=== PATIENT | male | born 1955 | race Caucasian/White ===

== ENCOUNTER 2017-02-26 13:04 | Inpatient (IN) | payer SELFPAY ==
[~2017-02-26] VITALS: Ht 177.8 cm; Wt 116.0 kg
[2017-02-26] VITALS (11 sets, daily range): BP systolic 101–129; BP diastolic 68–98; PULSE 68–106; RESP 16–23; TEMP 97.8–98.3; O2SAT 97–98
[2017-02-26] MEDS ORDERED: DILTIAZEM INJ 125 MG in SODIUM CHLORIDE 0.9% INJ 100 ML IV PRN ×2 (13:45→17:15)
[2017-02-26] MEDS ORDERED: DILTIAZEM HCL 25 MG/5 ML VIAL IV PUSH ONE (13:45)
[2017-02-26] MEDS ORDERED: SODIUM CHLORIDE 0.9% FLUSH 10 ML FLUSH IVF PRN (13:45)
--- NOTE | 2017-02-26 13:56 | PD ---
HPI Chief Complaint: Respiratory Symptoms Time Seen by Provider: 13:40 Travel History International Travel<30 days: No Contact w/Intl Traveler<30days: No Traveled to known affect area: No History of Present Illness HPI This is a 61-year-old male with no significant past medical history, presents today with shortness of breath with exertion 10 days. Patient also reports shortness of breath when lying flat. Patient also remarks that he's had swelling of his legs over last 2 days. He states this is new. He has no chest pain, chest pressure. She denies any palpitations. There are no other complaints time my examination. The patient reports smoking 5 cigars per year. He denies any alcohol abuse. He denies any thyroid disease. [facility] Social History Tobacco Use: Yes (occasional cigar. Reports 5 per year) Allergies-Medications (Allergen,Severity, Reaction): Coded Allergies: No Known Allergies (Unverified , 02/26/17) Reported Meds & Prescriptions Reported Meds & Active Scripts Active Reported Aspirin Low Dose (Aspirin) 81 Mg Chew 81 Mg CHEW DAILY Review of Systems Except as stated in HPI: all other systems reviewed are Neg HENT: No: Headaches, Lightheadedness Cardiovascular: No: Chest Pain or Discomfort, Palpitations, Irregular Rhythm Respiratory: Positive: Shortness of Breath, No: Cough, Wheezing Gastrointestinal: No: Nausea, Vomiting, Abdominal Pain Genitourinary: No: Dysuria, Decreased Urinary Output Musculoskeletal: Positive: Edema, No: Weakness, Pain Neurologic: No: Weakness, Dizziness, Headache Physical Exam Narrative GENERAL: Well-developed well-nourished male in mild respiratory distress. SKIN: Focused skin assessment warm/dry. HEAD: Atraumatic. Normocephalic. EYES: No scleral icterus. No injection or drainage. ENT: No nasal bleeding or discharge. Mucous membranes pink and moist. NECK: Trachea midline. No JVD. Supple. CARDIOVASCULAR: Irregularly irregular with a rate in the 130s. No obvious murmurs gallops rubs. RESPIRATORY: No accessory muscle use. Clear to auscultation. Breath sounds equal bilaterally. GASTROINTESTINAL: Abdomen soft, non-tender, nondistended. Hepatic and splenic margins not palpable. MUSCULOSKELETAL: No obvious deformities. No clubbing. No cyanosis. Trace edema bilaterally. NEUROLOGICAL: Awake and alert. No obvious cranial nerve deficits. Motor grossly within normal limits. Normal speech. PSYCHIATRIC: Appropriate mood and affect; insight and judgment normal. Data Data Last Documented VS Vital Signs Date Time Temp Pulse Resp B/P (MAP) Pulse Ox O2 Delivery O2 Flow Rate FiO2 02/26/17 17:39 97 23 129/83 (98) 97 Nasal Cannula 2.00 02/26/17 13:06 97.8 Orders Orders Electrocardiogram (02/26/17 13:40) Basic Metabolic Panel (Bmp) (02/26/17 13:40) B-Type Natriuretic Peptide (02/26/17 13:40) Ckmb (Isoenzyme) Profile (02/26/17 13:40) Complete Blood Count With Diff (02/26/17 13:40) Magnesium (Mg) (02/26/17 13:40) Prothrombin Time / Inr (Pt) (02/26/17 13:40) Act Partial Throm Time (Ptt) (02/26/17 13:40) Troponin I (02/26/17 13:40) Chest, Single Ap (02/26/17 13:40) Ecg Monitoring (02/26/17 13:40) Bilateral Bp Monitoring (02/26/17 13:40) Iv Access Insert/Monitor (02/26/17 13:40) Oximetry (02/26/17 13:40) Oxygen Administration (02/26/17 13:40) Sodium Chloride 0.9% Flush (Ns Flush) (02/26/17 13:45) Diltiazem Inj (Cardizem Inj) (02/26/17 13:45) Diltiazem Inj (Cardizem Inj) (02/26/17 13:45) Troponin I (02/26/17 13:58) Ckmb (Isoenzyme) Profile (02/26/17 13:58) Furosemide Inj (Lasix Inj) (02/26/17 15:45) Thyroid Stimulating Hormone (02/26/17 15:47) Comprehensive Metabolic Panel (02/27/17 06:00) Free Thyroxine (T4) (02/27/17 06:00) Hemoglobin (Hgb) A1c (02/27/17 06:00) Magnesium (Mg) (02/27/17 06:00) Phosphorus (Po4) (02/27/17 06:00) Thyroid Stimulating Hormone (02/27/17 06:00) Complete Blood Count With Diff (02/27/17 06:00) Bedside Glucose JULI.CSUGAR (02/26/17 17:01) Blood Glucose Goal (Criteria) (02/26/17 17:01) Hypoglycemia 70 Mg/Dl Or < (02/26/17 17:01) Notify Dr: Other (02/26/17 17:01) Dextrose 50% In Saw (Vial) Inj (D50w (Vi (02/26/17 17:15) Glucagon Inj (Glucagon Inj) (02/26/17 17:15) Case Management Consult (02/26/17 ) Insulin Aspart Supplemtl Scale (Novolog (02/26/17 21:00) Admit To Inpatient (02/26/17 ) Code Status (02/26/17 17:02) Vital Signs (Adult) Q4H (02/26/17 17:02) Activity Bed Rest (02/26/17 17:02) Intake + Output JULI.QSHIFT (02/26/17 17:02) Diet Heart Healthy (02/26/17 Dinner) Sodium Chloride 0.9% Flush (Ns Flush) (02/26/17 17:15) Sodium Chloride 0.9% Flush (Ns Flush) (02/26/17 21:00) Enoxaparin Inj (Lovenox Inj) (02/26/17 18:00) Aspirin (Aspirin) (02/26/17 17:15) Magnesium (Mg) (02/26/17 17:02) Troponin I (02/26/17 17:02) Troponin I (02/26/17 23:02) Troponin I (02/27/17 05:02) Creatine Kinase (Cpk) (02/26/17 17:02) Creatine Kinase (Cpk) (02/26/17 23:02) Creatine Kinase (Cpk) (02/27/17 05:02) Echo 2d Comp With Doppler (02/26/17 ) Resp Oxygen Rodrigo C Titrat 1-4 L (02/26/17 ) Resp Pulse Oximetry (02/26/17 ) Consult Cardiology (02/26/17 ) Scd Bilateral/Knee High JULI.BID (02/26/17 17:02) Chicho Bilateral/Knee High JULI.QSHIFT (02/26/17 17:15) Vital Signs (Adult) Q15MX4,Q4H (02/26/17 17:02) Sales Floor Manager / Telemetry JULI.Q8H (02/26/17 17:02) Cardiac Rhythm JULI.Q8H (02/26/17 17:02) Notify Dr: Other (02/26/17 17:02) Diltiazem Inj (Cardizem Inj) (02/26/17 17:15) Vital Signs (Adult) Q4H (02/26/17 17:02) Sales Floor Manager / Telemetry .CONTINUOUS (02/26/17 17:02) Intake + Output JULI.QSHIFT (02/26/17 17:02) Sodium Chloride 0.9% Flush (Ns Flush) (02/26/17 17:15) Sodium Chloride 0.9% Flush (Ns Flush) (02/26/17 21:00) Acetaminophen (Tylenol) (02/26/17 17:15) Ondansetron Inj (Zofran Inj) (02/26/17 17:15) Metoclopramide Inj (Reglan Inj) (02/26/17 17:15) Resp Oxygen Rodrigo C Titrat 1-4 L (02/26/17 ) Pt Request For Service (02/26/17 17:02) Ot Request For Service (02/26/17 17:02) Case Management Consult (02/26/17 17:02) Acetaminophen (Tylenol) (02/26/17 17:15) Oxycodone-Acetamin 5-325 Mg (Percocet (02/26/17 17:15) Oxycodone-Acetamin 10-325 Mg (Percocet 1 (02/26/17 17:15) Morphine Inj (Morphine Inj) (02/26/17 17:15) Naloxone Inj (Narcan Inj) (02/26/17 17:15) Docusate Sodium-Senna (Laurie-Colace) (02/26/17 21:00) Magnesium Hydroxide Liq (Milk Of Magnesi (02/26/17 17:15) Sennosides (Senokot) (02/26/17 17:15) Bisacodyl Supp (Dulcolax Supp) (02/26/17 17:15) Lactulose Liq (Lactulose Liq) (02/26/17 17:15) Inpatient Certification (02/26/17 ) Famotidine (Pepcid) (02/26/17 21:00) Occult Blood (Hemoccult) Stool (02/26/17 17:08) Morphine Inj (Morphine Inj) (02/26/17 17:15) Admit Order (Ed Use Only) (02/26/17 17:44) (Hub Use Only)Inp Phy Cons/Ref (02/26/17 ) Labs Laboratory Tests Test 02/26/17 13:52 02/26/17 14:08 02/26/17 16:29 White Blood Count 9.0 TH/MM3 Red Blood Count 4.40 MIL/MM3 Hemoglobin 15.5 GM/DL Hematocrit 44.1 % Mean Corpuscular Volume 100.2 FL Mean Corpuscular Hemoglobin 35.3 PG Mean Corpuscular Hemoglobin Concent 35.3 % Red Cell Distribution Width 13.1 % Platelet Count 222 TH/MM3 Mean Platelet Volume 8.0 FL Neutrophils (%) (Auto) 69.5 % Lymphocytes (%) (Auto) 19.5 % Monocytes (%) (Auto) 10.4 % Eosinophils (%) (Auto) 0.1 % Basophils (%) (Auto) 0.5 % Neutrophils # (Auto) 6.3 TH/MM3 Lymphocytes # (Auto) 1.8 TH/MM3 Monocytes # (Auto) 0.9 TH/MM3 Eosinophils # (Auto) 0.0 TH/MM3 Basophils # (Auto) 0.0 TH/MM3 CBC Comment DIFF FINAL Differential Comment Prothrombin Time 13.1 SEC Prothromb Time International Ratio 1.3 RATIO Activated Partial Thromboplast Time 22.2 SEC Blood Urea Nitrogen 23 MG/DL Creatinine 1.16 MG/DL Random Glucose 119 MG/DL Calcium Level 8.4 MG/DL Magnesium Level 2.1 MG/DL Sodium Level 139 MEQ/L Potassium Level 3.8 MEQ/L Chloride Level 107 MEQ/L Carbon Dioxide Level 21.6 MEQ/L Anion Gap 10 MEQ/L Estimat Glomerular Filtration Rate 64 ML/MIN Total Creatine Kinase 80 U/L 76 U/L Troponin I 0.17 NG/ML 0.17 NG/ML B-Type Natriuretic Peptide 1556 PG/ML MDM Medical Decision Making Medical Screen Exam Complete: Yes Emergency Medical Condition: Yes Differential Diagnosis A. fib with RVR versus sinus tachycardia versus metabolic derangement versus ACS Narrative Course 61-year-old male with no past microscopic, presents here with 10 day history of exertional shortness of breath. Patient was noted to be in A. fib with RVR. He was started on diltiazem drip after diltiazem bolus. His heart rate initially was in the 130s 140s. Is currently now in the 80s and 90s. Patient has mild to moderate congestive heart failure on chest x-ray. He's been given Lasix 40 mg I V times one dose. Patient's troponin is also 0.17. He'll be admitted to the hospital placed on a telemetry floor. He is currently having no chest pain. [facility] agreed to admit the patient to his service. The be cardiology consult. Critical Care Narrative Aggregate critical care time was 40 minutes. Time to perform other separately billable procedures was not included in the critical care time. My time did not include minutes spent treating any other patients simultaneously or on activities that did not directly contribute to the patient's treatment. The services I provided to this patient were to treat and/or prevent clinically significant deterioration that could result in: I provided critical care services requiring my management, as noted below: Chart data review, documentation time, medication orders and management, vital sign assessments/reviewing monitor data, ordering and reviewing lab tests, ordering and interpreting/reviewing x-rays and diagnostic studies, care of the patient and discussion of the patient with the admitting physicians. Diagnosis Primary Impression: Atrial fibrillation with rapid ventricular response Additional Impressions: Congestive heart failure Elevated troponin Admitting Information Admitting Physician Requests: Admit Remy Batista MD Feb 26, 2017 13:56
[2017-02-26 14:05] LABS: AUTOMATED NEUTROPHIL # 6.3 TH/MM3 (1.8-7.7); BASOPHIL % 0.5 % (0.0-2.0); EOSINOPHIL % 0.1 % (0.0-4.0); HEMATOCRIT 44.1 % (39.0-51.0); HEMOGLOBIN 15.5 GM/DL (13.0-17.0); LYMPH % 19.5 % (9.0-44.0); LYMPHOCYTE # 1.8 TH/MM3 (1.0-4.8); MEAN CELL VOLUME 100.2 FL (80.0-100.0); MEAN CORPUSCULAR HEMOGLOBIN 35.3 PG (27.0-34.0); MEAN CORPUSCULAR HGB CONC 35.3 % (32.0-36.0); MONO % 10.4 % (0.0-8.0); MONOCYTE # 0.9 TH/MM3 (0-0.9); NEUT % 69.5 % (16.0-70.0); PLATELET COUNT 222 TH/MM3 (150-450); RED CELL DISTRIBUTION WIDTH 13.1 % (11.6-17.2)
[2017-02-26 14:14] LABS: INTERNATIONAL NORMALIZED RATIO 1.3 RATIO; PROTHROMBIN TIME - PATIENT 13.1 SEC (9.8-11.6)
[2017-02-26 14:26] LABS: BICARBONATE 21.6 MEQ/L (21.0-32.0); CALCIUM 8.4 MG/DL (8.5-10.1); CREATININE 1.16 MG/DL (0.60-1.30); MAGNESIUM 2.1 MG/DL (1.5-2.5)
[2017-02-26 14:29] LABS: TROPONIN I 0.17 NG/ML (0.02-0.05)
--- NOTE | 2017-02-26 14:32 | RADRPT ---
EXAM DATE/TIME: 02/26/2017 13:58 [facility] COMPARISON: No previous studies available for comparison. INDICATIONS : Chest pain. MEDICAL HISTORY : A-fib. SURGICAL HISTORY : None. ENCOUNTER: Initial ACUITY: 3 days PAIN SCORE: 4/10 LOCATION: Bilateral chest FINDINGS: Cardiomegaly mild interstitial edema. No focal consolidation. No pneumothorax. No pleural effusion . The portion of the bony skeleton visualized is unremarkable. CONCLUSION: Mild congestive failure. Mild cardiomegaly Casey Guardado MD FACR on February 26, 2017 at 14:29 Board Certified Radiologist. This report was verified electronically.
[2017-02-26 14:46] LABS: TROPONIN I 0.17 NG/ML (0.02-0.05)
[2017-02-26] MEDS ORDERED: FUROSEMIDE 40 MG/4 ML VIAL IV PUSH ONE (15:45)
--- NOTE | 2017-02-26 16:38 | EKG ---
Date Performed: 02/26/2017 Time Performed: 13:46:36 PTAGE: 61 years EKG: ATRIAL FIBRILLATION WITH RAPID VENTRICULAR RESPONSE WITH ABERRANT CONDUCTION OR VENTRICULAR PREMATURE COMPLEXES MARKED LEFT AXIS DEVIATION INCOMPLETE RIGHT BUNDLE BRANCH BLOCK NONSPECIFIC T-WA VE ABNORMALITY ABNORMAL ECG NO PREVIOUS TRACING DOCTOR: Titus Ordonez Interpretating Date/Time 02/26/2017 16:37:00
[2017-02-26] MEDS ORDERED: SODIUM CHLORIDE 0.9% FLUSH 10 ML FLUSH IV FLUSH PRN ×2 (17:15)
[2017-02-26] MEDS ORDERED: ONDANSETRON HCL 4 MG/2 ML VIAL IVP PRN (17:15)
[2017-02-26] MEDS ORDERED: SENNOSIDES 8.6 MG TAB PO PRN (17:15)
[2017-02-26] MEDS ORDERED: LACTULOSE SYRUP 20 GM/30 ML CUP PO PRN (17:15)
[2017-02-26] MEDS ORDERED: oxyCODONE/ACETAMINOPHEN 5 MG/325 MG TAB PO PRN (17:15)
[2017-02-26] MEDS ORDERED: oxyCODONE/ACETAMINOPHEN 10 MG/325 MG TAB PO PRN (17:15)
[2017-02-26] MEDS ORDERED: ACETAMINOPHEN 325 MG TAB PO PRN ×2 (17:15)
[2017-02-26] MEDS ORDERED: BISACODYL 10 MG SUPP RECTAL PRN (17:15)
[2017-02-26] MEDS ORDERED: MAGNESIUM HYDROXIDE SUSP 30 ML CUP PO PRN (17:15)
[2017-02-26] MEDS ORDERED: DEXTROSE 50% IN WATER 50 ML VIAL(D50) IV PUSH PRN (17:15)
[2017-02-26] MEDS ORDERED: GLUCAGON 1 MG/ML VIAL OTHER PRN (17:15)
[2017-02-26] MEDS ORDERED: METOCLOPRAMIDE HCL 10 MG/2 ML VIAL IV PUSH PRN (17:15)
[2017-02-26] MEDS ORDERED: MORPHINE SULFATE 4 MG/ML INJ IV PUSH PRN (17:15)
[2017-02-26] MEDS ORDERED: MORPHINE SULFATE 2 MG/ML INJ IV PUSH PRN (17:15)
[2017-02-26] MEDS ORDERED: NALOXONE HCL 0.4 MG/ML AMP IV PUSH PRN (17:15)
--- NOTE | 2017-02-26 17:19 | HHI.HP ---
HPI Service [facility] Hospitalists Primary Care Physician No Primary Care Physician Admission Diagnosis Diagnoses: (1) Atrial fibrillation Diagnosis: Principal (2) Troponin level elevated Diagnosis: Principal (3) Dyspnea Diagnosis: Principal (4) Shortness of breath Diagnosis: Principal Chief Complaint: Respiratory symptoms Travel History International Travel<30 Days: No Contact w/Intl Traveler <30 Da: No Traveled to Known Affected Are: No History of Present Illness Patient is a 61-year-old male with no significant past medical history presented to [facility] today with shortness of breath with ongoing exertion for the past 10 days. Patient also reports shortness of breath when lying flat. Patient also remarks that he's had swelling of his legs over the last 2 or so days. He states this is new. A denies any chest pain or chest pressure. Denies any palpitations. Smokes 5 cigars per year denies any alcohol abuse denies any thyroid issues Was found to be in A. fib with RVR and positive troponins and therefore will be admitted on a Cardizem drip to the cardiac floor Review of Systems Constitutional: COMPLAINS OF: Fatigue, Weight gain, DENIES: Diaphoretic episodes, Fever, Weight loss, Chills, Dizziness, Change in appetite, Night Sweats Endocrine: DENIES: Heat/cold intolerance, Polydipsia, Polyuria, Polyphagia Eyes: DENIES: Blurred vision, Diplopia, Eye inflammation, Eye pain, Photosensitivity Ears, nose, mouth, throat: DENIES: Tinnitus, Hearing loss, Vertigo, Nasal discharge, Oral lesions, Throat pain Respiratory: DENIES: Apneas, Cough, Snoring, Wheezing, Hemoptysis, Sputum production Cardiovascular: COMPLAINS OF: Dyspnea on Exertion, PND, Lower Extremity Edema, Orthopnea, DENIES: Chest pain, Palpitations, Syncope Gastrointestinal: DENIES: Abdominal pain, Black stools, Bloody stools, Constipation, Diarrhea, Nausea Genitourinary: DENIES: Sexual dysfunction, Urinary frequency Musculoskeletal: DENIES: Joint pain, Muscle aches, Stiffness, Joint Swelling Integumentary: DENIES: Abnormal pigmentation, Nail changes, Pruritus, Rash Hematologic/lymphatic: DENIES: Bruising, Lymphadenopathy Immunologic/allergic: DENIES: Eczema, Urticaria Neurologic: DENIES: Abnormal gait, Headache, Localized weakness Psychiatric: DENIES: Anxiety, Confusion, Mood changes, Depression Except as stated in HPI: all other systems reviewed are Neg Past Family Social History Past Medical History Denies Past Surgical History Denies any surgery Reported Medications None Allergies: Coded Allergies: No Known Allergies (Unverified , 02/26/17) Active Ordered Medications Current Medications Sodium Chloride (NS Flush) 2 ml UNSCH PRN IVF FLUSH AFTER USING IV ACCESS; Start 02/26/17 at 13:45 Diltiazem HCl 125 mg/Sodium Chloride 125 ml @ 5 mls/hr TITRATE PRN IV tachycardia Last administered on 02/26/17 14:52; Start 02/26/17 at 13:45 Diltiazem HCl (Cardizem Inj) 25 mg BOLUS ONCE IV PUSH Last administered on 14:14; Start 02/26/17 at 13:45; Stop 02/26/17 at 13:46; Status DC Furosemide (Lasix Inj) 40 mg ONCE ONCE IV PUSH Last administered on 16:38; Start 02/26/17 at 15:45; Stop 02/26/17 at 15:46; Status DC Dextrose (D50w (Vial) Inj) 50 ml UNSCH PRN IV PUSH HYPOGLYCEMIA-SEE COMMENTS; Start 02/26/17 at 17:15 Glucagon (Glucagon Inj) 1 mg UNSCH PRN OTHER HYPOGLYCEMIA-SEE COMMENTS; Start 02/26/17 at 17:15 Insulin Aspart (NovoLOG SUPPLEMENTAL SCALE) 1 ACHS SLIDING SCALE SQ ; Start at 21:00 Sodium Chloride (NS Flush) 2 ml UNSCH PRN IV FLUSH FLUSH AFTER USING IV ACCESS ; Start 02/26/17 at 17:15; Status UNV Sodium Chloride (NS Flush) 2 ml BID IV FLUSH ; Start 02/26/17 at 21:00; Status UNV Enoxaparin Sodium (Lovenox Inj) 100 mg Q12H SQ ; Start 02/26/17 at 17:15; Status UNV Aspirin (Aspirin) 325 mg DAILY PO ; Start 02/26/17 at 17:15; Status UNV Diltiazem HCl 125 mg/Sodium Chloride 125 ml @ 5 mls/hr TITRATE PRN IV Tachycardia; Start 02/26/17 at 17:15; Status UNV Sodium Chloride (NS Flush) 2 ml UNSCH PRN IV FLUSH FLUSH AFTER USING IV ACCESS ; Start 02/26/17 at 17:15; Status UNV Sodium Chloride (NS Flush) 2 ml BID IV FLUSH ; Start 02/26/17 at 21:00; Status UNV Acetaminophen (Tylenol) 650 mg Q4H PRN PO TEMP > 100.4; Start 02/26/17 at 17: 15; Status UNV Ondansetron HCl (Zofran Inj) 4 mg Q6H PRN IVP NAUSEA OR VOMITING; Start at 17:15; Status UNV Metoclopramide HCl (Reglan Inj) 5 mg Q6H PRN IV PUSH NAUSEA OR VOMITING; Start 02/26/17 at 17:15; Status UNV Acetaminophen (Tylenol) 650 mg Q6H PRN PO PAIN SCALE 1 TO 2; Start 02/26/17 at 17:15; Status UNV Oxycodone/ Acetaminophen (Percocet 5-325 Mg) 1 tab Q6H PRN PO PAIN SCALE 3 TO 5; Start 02/26/17 at 17:15; Status UNV Oxycodone/ Acetaminophen (Percocet 10-325 Mg) 1 tab Q6H PRN PO PAIN SCALE 6 TO 10; Start 02/26/17 at 17:15; Status UNV Morphine Sulfate (Morphine Inj) 2 mg Q3H PRN IV PUSH Pain 3-5; if unable to take PO; Start 02/26/17 at 17:15; Status UNV Morphine Sulfate (Morphine Inj) 4 mg Q3H PRN IV PUSH Pain 6-10;if unable to take PO; Start 02/26/17 at 17:15; Status UNV Naloxone HCl (Narcan Inj) 0.4 mg UNSCH PRN IV PUSH SEE LABEL COMMENTS; Start 02/26/17 at 17:15; Status UNV Senna/Docusate Sodium (Laurie-Colace) 1 tab BID PO ; Start 02/26/17 at 21:00; Status UNV Magnesium Hydroxide (Milk Of Magnesia Liq) 30 ml Q12H PRN PO Mild constipation ; Start 02/26/17 at 17:15; Status UNV Sennosides (Senokot) 17.2 mg Q12H PRN PO Moderate constipation; Start at 17:15; Status UNV Bisacodyl (Dulcolax Supp) 10 mg DAILY PRN RECTAL SEVERE CONSITIPATION; Start 02/26/17 at 17:15; Status UNV Lactulose (Lactulose Liq) 30 ml DAILY PRN PO SEVERE CONSITIPATION; Start 02/26 at 17:15; Status UNV Famotidine (Pepcid) 20 mg BID PO ; Start 02/26/17 at 21:00; Status UNV Family History Father from lung cancer at 54 Mother at 79 with dementia Social History Rare cigar maybe 5 times a year Denies any alcohol abuse. Denies any illicits Physical Exam Vital Signs Vital Signs Date Time Temp Pulse Resp B/P (MAP) Pulse Ox O2 Delivery O2 Flow Rate FiO2 02/26/17 16:40 101 23 112/92 (99) 97 Nasal Cannula 2.00 02/26/17 14:52 103 151/86 02/26/17 14:20 93 Nasal Cannula 2.00 02/26/17 14:17 106 21 112/69 (83) 97 Room Air 02/26/17 13:18 158 99 Room Air 02/26/17 13:06 97.8 68 16 123/98 (106) 97 Physical Exam GENERAL: This is a well-nourished, well-developed patient, in no apparent distress. SKIN: No rashes, ecchymoses or lesions. Cool and dry. HEAD: Atraumatic. Normocephalic. No temporal or scalp tenderness. EYES: Pupils equal round and reactive. Extraocular motions intact. No scleral icterus. No injection or drainage. ENT: Nose without bleeding, purulent drainage or septal hematoma. Throat without erythema, tonsillar hypertrophy or exudate. Uvula midline. Airway patent. NECK: Trachea midline. No JVD or lymphadenopathy. Supple, nontender, no meningeal signs. CARDIOVASCULAR: IRRegular rate and rhythm without murmurs, gallops, or rubs. S1 and S2 no S3 or S4 no heave or thrill or rub or gallop RESPIRATORY: Clear to auscultation. Breath sounds equal bilaterally. No wheezes , rales, or rhonchi. GASTROINTESTINAL: Abdomen soft, non-tender, nondistended. No hepato-splenomegaly , or palpable masses. No guarding. MUSCULOSKELETAL: Extremities without clubbing, cyanosis, +1 to +2 lower extremity edema no joint tenderness, effusion, or edema noted. No calf tenderness. Negative Homans sign bilaterally. NEUROLOGICAL: Awake and alert. Cranial nerves II through XII intact. Motor and sensory grossly within normal limits. Five out of 5 muscle strength in all muscle groups. Normal speech. Insight and judgment is good Mood and behaviors appropriate Laboratory Laboratory Tests Test 02/26/17 13:52 02/26/17 14:08 White Blood Count 9.0 Red Blood Count 4.40 Hemoglobin 15.5 Hematocrit 44.1 Mean Corpuscular Volume 100.2 Mean Corpuscular Hemoglobin 35.3 Mean Corpuscular Hemoglobin Concent 35.3 Red Cell Distribution Width 13.1 Platelet Count 222 Mean Platelet Volume 8.0 Neutrophils (%) (Auto) 69.5 Lymphocytes (%) (Auto) 19.5 Monocytes (%) (Auto) 10.4 Eosinophils (%) (Auto) 0.1 Basophils (%) (Auto) 0.5 Neutrophils # (Auto) 6.3 Lymphocytes # (Auto) 1.8 Monocytes # (Auto) 0.9 Eosinophils # (Auto) 0.0 Basophils # (Auto) 0.0 CBC Comment DIFF FINAL Differential Comment Prothrombin Time 13.1 Prothromb Time International Ratio 1.3 Activated Partial Thromboplast Time 22.2 Blood Urea Nitrogen 23 Creatinine 1.16 Random Glucose 119 Calcium Level 8.4 Magnesium Level 2.1 Sodium Level 139 Potassium Level 3.8 Chloride Level 107 Carbon Dioxide Level 21.6 Anion Gap 10 Estimat Glomerular Filtration Rate 64 Total Creatine Kinase 80 76 Troponin I 0.17 0.17 B-Type Natriuretic Peptide 1556 Result Diagram: 02/26/17 1352 02/26/17 1352 Imaging Last Impressions Chest X-Ray 02/26/17 1340 Signed Impressions: Service Date/Time: Sunday, February 26, 2017 13:58 - CONCLUSION: Mild congestive failure. Mild cardiomegaly Casey Guardado MD FACR Caprini VTE Risk Assessment Caprini VTE Risk Assessment: Mod/High Risk (score >= 2) Caprini Risk Assessment Model Point Value = 1 Point Value = 2 Point Value = 3 Point Value = 5 Age 41-60 Minor surgery BMI > 25 kg/m2 Swollen legs Varicose veins or History of unexplained or recurrent spontaneous Oral contraceptives or hormone replacement Sepsis (< 1 month) Serious lung disease, including pneumonia (< 1 month) Abnormal pulmonary function Acute myocardial infarction Congestive heart failure (< 1 month) History of inflammatory bowel disease Medical patient at bed rest Age 61-74 Arthroscopic surgery Major open surgery (> 45 min) Laparoscopic surgery (> 45 min) Malignancy Confined to bed (> 72 hours) Immobilizing plaster cast Central venous access Age >= 75 History of VTE Family history of VTE Factor V Leiden Prothrombin [id number] Lupus anticoagulant Anticardiolipin antibodies Elevated serum homocysteine Heparin-induced thrombocytopenia Other congenital or acquired thrombophilia Stroke (< 1 month) Elective arthroplasty Hip, pelvis, or leg fracture Acute spinal cord injury (< 1 month) Prophylaxis Regimen Total Risk Factor Score Risk Level Prophylaxis Regimen 0-1 Low Early ambulation 2 Moderate Order ONE of the following: *Sequential Compression Device (SCD) *Heparin 5000 units SQ BID 3-4 Higher Order ONE of the following medications: *Heparin 5000 units SQ TID *Enoxaparin/Lovenox 40 mg SQ daily (WT < 150 kg, CrCl > 30 mL/min) *Enoxaparin/Lovenox 30 mg SQ daily (WT < 150 kg, CrCl > 10-29 mL/min) *Enoxaparin/Lovenox 30 mg SQ BID (WT < 150 kg, CrCl > 30 mL/min) AND/OR *Sequential Compression Device (SCD) 5 or more Highest Order ONE of the following medications: *Heparin 5000 units SQ TID (Preferred with Epidurals) *Enoxaparin/Lovenox 40 mg SQ daily (WT < 150 kg, CrCl > 30 mL/min) *Enoxaparin/Lovenox 30 mg SQ daily (WT < 150 kg, CrCl > 10-29 mL/min) *Enoxaparin/Lovenox 30 mg SQ BID (WT < 150 kg, CrCl > 30 mL/min) AND *Sequential Compression Device (SCD) Assessment and Plan Assessment and Plan Atrial fibrillation with RVR with positive troponins and some edema Continues on Cardizem drip Consult cardiology Continue on anticoagulation with Lovenox Continue GI prophylaxis Stool for occult blood Echocardiogram Continue on aspirin and Pepcid Non-ST elevation MD trend troponins echo Positive troponins we'll trend these We'll check thyroid panel. And treat as appropriate We'll check fasting lipids will need to be on a statin Continue on GI and DVT prophylaxis Stool for occult blood Code Status Full code Discussed Condition With Discussed with patient and and ER physician and RN Physician Certification 2 Midnight Certification Type: Admission for Inpatient Services Order for Inpatient Services The services are ordered in accordance with Medicare regulations or non- Medicare payer requirements, as applicable. In the case of services not specified as inpatient-only, they are appropriately provided as inpatient services in accordance with the 2-midnight benchmark. Estimated LOS (days): 2 2 days is the estimated time the patient will need to remain in the hospital, assuming treatment plan goals are met and no additional complications. Post-Hospital Plan: Not yet determined Casey Souza DO Feb 26, 2017 17:19
[2017-02-26] MEDS ORDERED: ASPI81CH6 CHEW (18:13)
[2017-02-26] MEDS: ASPIRIN 325 MG TAB PO SCH (19:54)
[2017-02-26] MEDS: ENOXAPARIN SODIUM 100 MG/ML SYRINGE SQ SCH (19:54)
[2017-02-26] MEDS ORDERED: SODIUM CHLORIDE 0.9% FLUSH 10 ML FLUSH IV FLUSH SCH (21:00)
[2017-02-26] MEDS: DOCUSATE SODIUM 50 MG/SENNA 8.6 MG TAB PO SCH (21:00)
[2017-02-26] MEDS: INSULIN ASPART SUPPLEMENTAL SCALE SQ SCH (21:00)
[2017-02-26] MEDS: FAMOTIDINE 20 MG TAB PO SCH (21:00)
[2017-02-26] MEDS: SODIUM CHLORIDE 0.9% FLUSH 10 ML FLUSH IV FLUSH SCH (22:08)
[2017-02-26 23:35] LABS: TROPONIN I 0.15 NG/ML (0.02-0.05)
[2017-02-27] VITALS (19 sets, daily range): BP systolic 96–123; BP diastolic 57–86; PULSE 69–113; RESP 16–20; TEMP 97.3–99.7; O2SAT 95–97
[2017-02-27 05:11] LABS: AUTOMATED NEUTROPHIL # 4.3 TH/MM3 (1.8-7.7); BASOPHIL % 0.4 % (0.0-2.0); EOSINOPHIL # 0.1 TH/MM3 (0-0.4); EOSINOPHIL % 0.7 % (0.0-4.0); HEMATOCRIT 40.1 % (39.0-51.0); HEMOGLOBIN 13.9 GM/DL (13.0-17.0); LYMPH % 29.7 % (9.0-44.0); LYMPHOCYTE # 2.1 TH/MM3 (1.0-4.8); MEAN CELL VOLUME 100.2 FL (80.0-100.0); MEAN CORPUSCULAR HEMOGLOBIN 34.7 PG (27.0-34.0); MEAN CORPUSCULAR HGB CONC 34.7 % (32.0-36.0); MEAN PLATELET VOLUME 7.7 FL (7.0-11.0); MONO % 10.2 % (0.0-8.0); MONOCYTE # 0.7 TH/MM3 (0-0.9); PLATELET COUNT 171 TH/MM3 (150-450); WHITE BLOOD COUNT 7.2 TH/MM3 (4.0-11.0)
[2017-02-27] MEDS: ENOXAPARIN SODIUM 100 MG/ML SYRINGE SQ SCH (05:18)
[2017-02-27 05:31] LABS: ALBUMIN 3.1 GM/DL (3.4-5.0); ALT (GPT) 80 U/L (12-78); AST (GOT) 41 U/L (15-37); BICARBONATE 23.9 MEQ/L (21.0-32.0); BLOOD UREA NITROGEN 22 MG/DL (7-18); CALCIUM 7.9 MG/DL (8.5-10.1); CHLORIDE 105 MEQ/L (98-107); CREATININE 0.99 MG/DL (0.60-1.30); GLOMERULAR FILTRATION RATE 77 ML/MIN (>89); GLUCOSE,RANDOM 110 MG/DL (74-106); MAGNESIUM 1.8 MG/DL (1.5-2.5); PHOSPHORUS 4.4 MG/DL (2.5-4.9); SODIUM (NA) 138 MEQ/L (136-145)
[2017-02-27 05:40] LABS: ALKALINE PHOSPHATASE 41 U/L (45-117); FREE T4 1.04 NG/DL (0.76-1.46); TOTAL BILIRUBIN ADULT 0.7 MG/DL (0.2-1.0); TOTAL PROTEIN 5.5 GM/DL (6.4-8.2); TROPONIN I 0.16 NG/ML (0.02-0.05)
[2017-02-27] MEDS: INSULIN ASPART SUPPLEMENTAL SCALE SQ SCH ×4 (08:00→21:00)
[2017-02-27] MEDS: FAMOTIDINE 20 MG TAB PO SCH ×2 (08:10→21:00)
[2017-02-27] MEDS: DOCUSATE SODIUM 50 MG/SENNA 8.6 MG TAB PO SCH ×2 (08:10→21:02)
[2017-02-27] MEDS: ASPIRIN 325 MG TAB PO SCH (08:15)
[2017-02-27] MEDS: SODIUM CHLORIDE 0.9% FLUSH 10 ML FLUSH IV FLUSH SCH ×2 (08:15→21:01)
[2017-02-27] MEDS ORDERED: POTASSIUM CHLORIDE 20 MEQ CONTROLLED RELEASE TAB PO ONE (09:00)
[2017-02-27 09:18] LABS: CHOLESTEROL/ HDL RATIO 3.82 RATIO; HDL CHOLESTEROL 33.5 MG/DL (40.0-60.0)
--- NOTE | 2017-02-27 09:27 | HHI.PR ---
Subjective Remarks Patient is a 61-year-old male with no significant past medical history presented to [facility] today with shortness of breath with ongoing exertion for the past 10 days. Patient also reports shortness of breath when lying flat. Patient also remarks that he's had swelling of his legs over the last 2 or so days. He states this is new. A denies any chest pain or chest pressure. Denies any palpitations. Smokes 5 cigars per year denies any alcohol abuse denies any thyroid issues Was found to be in A. fib with RVR and positive troponins and therefore will be admitted on a Cardizem drip to the cardiac floor 02-27 still on cardizem drip dw RN AND PATIENT TROPONINS NOT TRENDING UP MUCH AWAIT CARDIOLOGY EVAL Objective Vitals Vital Signs Date Time Temp Pulse Resp B/P (MAP) Pulse Ox O2 Delivery O2 Flow Rate FiO2 02/27/17 08:17 100 114/96 02/27/17 06:00 84 02/27/17 05:00 81 02/27/17 04:00 75 02/27/17 04:00 Room Air 02/27/17 04:00 98.8 75 18 118/80 (93) 95 02/27/17 03:00 76 02/27/17 02:00 74 02/27/17 01:00 86 02/27/17 00:00 99.7 84 20 118/64 (82) 96 02/27/17 00:00 Room Air 02/27/17 00:00 84 02/26/17 23:00 101 02/26/17 22:00 87 02/26/17 21:09 97 Nasal Cannula 2.00 02/26/17 21:00 98 02/26/17 20:00 87 02/26/17 20:00 98.3 87 20 109/83 (92) 97 02/26/17 20:00 98 Nasal Cannula 2.00 02/26/17 19:56 84 16 125/94 (104) 98 Room Air 02/26/17 18:56 94 21 101/68 (79) 97 Nasal Cannula 02/26/17 17:39 97 23 129/83 (98) 97 Nasal Cannula 2.00 02/26/17 16:40 101 23 112/92 (99) 97 Nasal Cannula 2.00 02/26/17 14:52 103 151/86 02/26/17 14:20 93 Nasal Cannula 2.00 02/26/17 14:17 106 21 112/69 (83) 97 Room Air 02/26/17 13:18 158 99 Room Air 02/26/17 13:06 97.8 68 16 123/98 (106) 97 I/O 02/26/17 02/26/17 02/26/17 02/27/17 02/27/17 02/27/17 07:00 15:00 23:00 07:00 15:00 23:00 Intake Total 530 ml Output Total 1200 ml 800 ml Balance -1200 ml -270 ml Intake Oral 480 ml IV Total 50 ml Output Urine Total 1200 ml 800 ml # Bowel Movements 0 Result Diagram: 02/27/17 0446 02/27/17 0446 Other Results Laboratory Tests Test 02/26/17 13:52 02/26/17 14:08 02/26/17 16:29 02/26/17 22:48 White Blood Count 9.0 TH/MM3 Red Blood Count 4.40 MIL/MM3 Hemoglobin 15.5 GM/DL Hematocrit 44.1 % Mean Corpuscular Volume 100.2 FL Mean Corpuscular Hemoglobin 35.3 PG Mean Corpuscular Hemoglobin Concent 35.3 % Red Cell Distribution Width 13.1 % Platelet Count 222 TH/MM3 Mean Platelet Volume 8.0 FL Neutrophils (%) (Auto) 69.5 % Lymphocytes (%) (Auto) 19.5 % Monocytes (%) (Auto) 10.4 % Eosinophils (%) (Auto) 0.1 % Basophils (%) (Auto) 0.5 % Neutrophils # (Auto) 6.3 TH/MM3 Lymphocytes # (Auto) 1.8 TH/MM3 Monocytes # (Auto) 0.9 TH/MM3 Eosinophils # (Auto) 0.0 TH/MM3 Basophils # (Auto) 0.0 TH/MM3 CBC Comment DIFF FINAL Differential Comment Prothrombin Time 13.1 SEC Prothromb Time International Ratio 1.3 RATIO Activated Partial Thromboplast Time 22.2 SEC Blood Urea Nitrogen 23 MG/DL Creatinine 1.16 MG/DL Random Glucose 119 MG/DL Calcium Level 8.4 MG/DL Magnesium Level 2.1 MG/DL Sodium Level 139 MEQ/L Potassium Level 3.8 MEQ/L Chloride Level 107 MEQ/L Carbon Dioxide Level 21.6 MEQ/L Anion Gap 10 MEQ/L Estimat Glomerular Filtration Rate 64 ML/MIN Total Creatine Kinase 80 U/L 76 U/L 53 U/L Troponin I 0.17 NG/ML 0.17 NG/ML 0.15 NG/ML B-Type Natriuretic Peptide 1556 PG/ML Thyroid Stimulating Hormone 3rd Gen 3.140 uIU/ML Test 02/27/17 04:46 White Blood Count 7.2 TH/MM3 Red Blood Count 4.00 MIL/MM3 Hemoglobin 13.9 GM/DL Hematocrit 40.1 % Mean Corpuscular Volume 100.2 FL Mean Corpuscular Hemoglobin 34.7 PG Mean Corpuscular Hemoglobin Concent 34.7 % Red Cell Distribution Width 13.0 % Platelet Count 171 TH/MM3 Mean Platelet Volume 7.7 FL Neutrophils (%) (Auto) 59.0 % Lymphocytes (%) (Auto) 29.7 % Monocytes (%) (Auto) 10.2 % Eosinophils (%) (Auto) 0.7 % Basophils (%) (Auto) 0.4 % Neutrophils # (Auto) 4.3 TH/MM3 Lymphocytes # (Auto) 2.1 TH/MM3 Monocytes # (Auto) 0.7 TH/MM3 Eosinophils # (Auto) 0.1 TH/MM3 Basophils # (Auto) 0.0 TH/MM3 CBC Comment DIFF FINAL Differential Comment Blood Urea Nitrogen 22 MG/DL Creatinine 0.99 MG/DL Random Glucose 110 MG/DL Total Protein 5.5 GM/DL Albumin 3.1 GM/DL Calcium Level 7.9 MG/DL Phosphorus Level 4.4 MG/DL Magnesium Level 1.8 MG/DL Alkaline Phosphatase 41 U/L Aspartate Amino Transf (AST/SGOT) 41 U/L Alanine Aminotransferase (ALT/SGPT) 80 U/L Total Bilirubin 0.7 MG/DL Sodium Level 138 MEQ/L Potassium Level 3.4 MEQ/L Chloride Level 105 MEQ/L Carbon Dioxide Level 23.9 MEQ/L Anion Gap 9 MEQ/L Estimat Glomerular Filtration Rate 77 ML/MIN Total Creatine Kinase 46 U/L Troponin I 0.16 NG/ML Triglycerides Level 79 MG/DL Cholesterol Level 128 MG/DL LDL Cholesterol 79 MG/DL HDL Cholesterol 33.5 MG/DL Cholesterol/HDL Ratio 3.82 RATIO Free Thyroxine 1.04 NG/DL Thyroid Stimulating Hormone 3rd Gen 2.260 uIU/ML Imaging Last Impressions Chest X-Ray 02/26/17 1340 Signed Impressions: Service Date/Time: Sunday, February 26, 2017 13:58 - CONCLUSION: Mild congestive failure. Mild cardiomegaly Casey Guardado MD FACR Objective Remarks GENERAL: Awake alert oriented talkative and cooperative denies any chest pain SKIN: Warm and dry. HEAD: Atraumatic. Normocephalic. EYES: Pupils equal and round. No scleral icterus. No injection or drainage. Extraocular muscles intact ENT: No nasal bleeding or discharge. Mucous membranes pink and moist. Tongue is midline NECK: Trachea midline. No JVD. Supple CARDIOVASCULAR: IRRegular rate and rhythm. S1 and S2 no S3 or S4 RESPIRATORY: No accessory muscle use. Clear to auscultation. Breath sounds equal bilaterally. GASTROINTESTINAL: Abdomen soft, non-tender, nondistended. Hepatic and splenic margins not palpable. MUSCULOSKELETAL: Extremities without clubbing, cyanosis No obvious deformities. Trace edema may be in bilateral lower extremities NEUROLOGICAL: Awake and alert. No obvious cranial nerve deficits. Motor grossly within normal limits. Five out of 5 muscle strength in the arms and legs. Normal speech. PSYCHIATRIC: Appropriate mood and affect; insight and judgment normal. Medications and IVs Current Medications Sodium Chloride (NS Flush) 2 ml UNSCH PRN IVF FLUSH AFTER USING IV ACCESS; Start 02/26/17 at 13:45; Stop 02/27/17 at 08:46; Status DC Diltiazem HCl 125 mg/Sodium Chloride 125 ml @ 5 mls/hr TITRATE PRN IV tachycardia Last administered on 02/26/17 14:52; Start 02/26/17 at 13:45; Stop 02/26/17 at 17:33; Status DC Diltiazem HCl (Cardizem Inj) 25 mg BOLUS ONCE IV PUSH Last administered on 14:14; Start 02/26/17 at 13:45; Stop 02/26/17 at 13:46; Status DC Furosemide (Lasix Inj) 40 mg ONCE ONCE IV PUSH Last administered on 16:38; Start 02/26/17 at 15:45; Stop 02/26/17 at 15:46; Status DC Dextrose (D50w (Vial) Inj) 50 ml UNSCH PRN IV PUSH HYPOGLYCEMIA-SEE COMMENTS; Start 02/26/17 at 17:15 Glucagon (Glucagon Inj) 1 mg UNSCH PRN OTHER HYPOGLYCEMIA-SEE COMMENTS; Start 02/26/17 at 17:15 Insulin Aspart (NovoLOG SUPPLEMENTAL SCALE) 1 ACHS SLIDING SCALE SQ ; Start at 21:00 Sodium Chloride (NS Flush) 2 ml UNSCH PRN IV FLUSH FLUSH AFTER USING IV ACCESS ; Start 02/26/17 at 17:15; Stop 02/26/17 at 17:16; Status DC Sodium Chloride (NS Flush) 2 ml BID IV FLUSH ; Start 02/26/17 at 21:00; Stop 02/26/17 at 21:00; Status DC Enoxaparin Sodium (Lovenox Inj) 100 mg Q12H SQ Last administered on 02/27/17 05:18; Start 02/26/17 at 18:00 Aspirin (Aspirin) 325 mg DAILY PO Last administered on 02/27/17 08:15; Start 02/26/17 at 17:15 Diltiazem HCl 125 mg/Sodium Chloride 125 ml @ 5 mls/hr TITRATE PRN IV Tachycardia Last administered on 02/27/17 08:17; Start 02/26/17 at 17:15 Sodium Chloride (NS Flush) 2 ml UNSCH PRN IV FLUSH FLUSH AFTER USING IV ACCESS ; Start 02/26/17 at 17:15 Sodium Chloride (NS Flush) 2 ml BID IV FLUSH Last administered on 02/27/17 08 :15; Start 02/26/17 at 21:00 Acetaminophen (Tylenol) 650 mg Q4H PRN PO TEMP > 100.4; Start 02/26/17 at 17: 15 Ondansetron HCl (Zofran Inj) 4 mg Q6H PRN IVP NAUSEA OR VOMITING; Start at 17:15 Metoclopramide HCl (Reglan Inj) 5 mg Q6H PRN IV PUSH NAUSEA OR VOMITING; Start 02/26/17 at 17:15 Acetaminophen (Tylenol) 650 mg Q6H PRN PO PAIN SCALE 1 TO 2; Start 02/26/17 at 17:15 Oxycodone/ Acetaminophen (Percocet 5-325 Mg) 1 tab Q6H PRN PO PAIN SCALE 3 TO 5; Start 02/26/17 at 17:15 Oxycodone/ Acetaminophen (Percocet 10-325 Mg) 1 tab Q6H PRN PO PAIN SCALE 6 TO 10; Start 02/26/17 at 17:15 Morphine Sulfate (Morphine Inj) 2 mg Q3H PRN IV PUSH Pain 3-5; if unable to take PO; Start 02/26/17 at 17:15 Morphine Sulfate (Morphine Inj) 4 mg Q3H PRN IV PUSH Pain 6-10;if unable to take PO; Start 02/26/17 at 17:15 Naloxone HCl (Narcan Inj) 0.4 mg UNSCH PRN IV PUSH SEE LABEL COMMENTS; Start 02/26/17 at 17:15 Senna/Docusate Sodium (Laurie-Colace) 1 tab BID PO ; Start 02/26/17 at 21:00 Magnesium Hydroxide (Milk Of Magnesia Liq) 30 ml Q12H PRN PO Mild constipation ; Start 02/26/17 at 17:15 Sennosides (Senokot) 17.2 mg Q12H PRN PO Moderate constipation; Start at 17:15 Bisacodyl (Dulcolax Supp) 10 mg DAILY PRN RECTAL SEVERE CONSITIPATION; Start 02/26/17 at 17:15 Lactulose (Lactulose Liq) 30 ml DAILY PRN PO SEVERE CONSITIPATION; Start 02/26 at 17:15 Famotidine (Pepcid) 20 mg BID PO ; Start 02/26/17 at 21:00 Potassium Chloride (KCl) 60 meq ONCE ONCE PO ; Start 02/27/17 at 09:00; Stop 02/27/17 at 09:01; Status DC A/P Problem List: (1) Atrial fibrillation ICD Code: I48.91 - Unspecified atrial fibrillation (2) Troponin level elevated ICD Code: R74.8 - Abnormal levels of other serum enzymes (3) Dyspnea ICD Code: R06.00 - Dyspnea, unspecified (4) Shortness of breath ICD Code: R06.02 - Shortness of breath Assessment and Plan Atrial fibrillation with RVR with positive troponins and some edema --much improved from yesterday Continues on Cardizem drip--still on Cardizem drip Consult cardiology and await their input Continue on anticoagulation with Lovenox Continue GI prophylaxis Stool for occult blood Echocardiogram has not been done or read yet Continue on aspirin and Pepcid Continue on Lasix 20 mg IV daily now Non-ST elevation MO trend troponins echo Positive troponins we'll trend these Hypokalemia Will replace with oral potassium and place on scheduled dosing We'll check thyroid panel. And treat as appropriate We'll check fasting lipids will need to be on a statin Continue on GI and DVT prophylaxis Stool for occult blood Discharge Planning Pending cardiac clearance and switched to by mouth medications Casey Souza DO Feb 27, 2017 09:27
[2017-02-27] MEDS ORDERED: FUROSEMIDE 20 MG/2 ML VIAL IV PUSH SCH (10:00)
[2017-02-27] MEDS ORDERED: PRAVASTATIN SOD 20 MG TAB PO SCH (10:00)
[2017-02-27] MEDS ORDERED: DILTIAZEM INJ 125 MG in SODIUM CHLORIDE 0.9% INJ 100 ML IV PRN (14:15)
[2017-02-27] MEDS: POTASSIUM CHLORIDE 20 MEQ CONTROLLED RELEASE TAB PO SCH ×2 (16:00→21:04)
--- NOTE | 2017-02-27 16:06 | MB ---
cc: YUSUF RANDHAWA M.D. DATE OF CONSULTATION: 02/27/2017. REASON FOR CONSULTATION: Shortness of breath. HISTORY OF PRESENT ILLNESS: Mandeep Merchant is a 61-year-old man who has not been to a doctor in over 10 years. He started getting shortness of breath starting about ten days ago with lower extremity edema and abdominal bloating for the last few days. He presented in congestive heart failure with rapid atrial fibrillation. The patient has excessive alcohol intake with two to three martinis or a half-bottle of wine on a daily basis. We do not know about any other diagnoses because he has not been to a doctor. He has a rare cigar, about six a year. He has a very low ejection fraction and has rapid atrial fibrillation. He does not feel the atrial fibrillation and it is not clear how long he has had it. PAST MEDICAL HISTORY: His past medical history is unremarkable. PAST SURGICAL HISTORY: His past surgical history is negative. SOCIAL HISTORY: He is and has excessive alcohol intake as described above. FAMILY HISTORY: His father of lung cancer at age 54 and his mother of dementia at age 79. REVIEW OF SYSTEMS: His review of systems was reviewed and is negative. PHYSICAL EXAMINATION: GENERAL: The physical exam shows a well-developed, well-nourished man who does not appear to be in acute distress. VITAL SIGNS: Telemetry showing atrial fibrillation. He is controlled now on IV Cardizem. HEAD, EYES, EARS, NOSE, THROAT: Unremarkable. NECK: His jugular veins are hard to assess. CHEST: Clear to auscultation. CARDIAC: Distant S1 and S2. Irregular rate and rhythm. There is a soft S3. I cannot hear murmurs. ABDOMEN: His abdomen is bloated. I did not appreciate organomegaly or feel his aorta due to the size. EXTREMITIES: Show 1 to 2+ edema, intact pulses. EKGS: EKG showed atrial fibrillation with rapid ventricular response and nonspecific S-T-T wave changes. Echo shows an ejection fraction of 20%. IMAGING STUDIES: Chest x-ray showed heart failure. LABORATORY STUDIES: Laboratories are charted. Troponins are nonspecific at 0.17, 0.15 and 0.16. AST elevated at 41. ALT elevated at 80. Albumin depressed at 3.1. Cholesterol 128, LDL 79, HDL 33.5. Potassium 3.4 but it has been repleted. Creatinine is normal at 0.99. IMPRESSION: Acute decompensated congestive heart failure with severely impaired left ventricular function and uncontrolled atrial fibrillation. It is not clear whether the atrial fibrillation precipitated the impaired left ventricular function or it is the other way around. He has not been to a doctor in ten years. It is not clear if alcohol could be contributing to the left ventricular dysfunction or the rapid atrial fibrillation. RECOMMENDATIONS: 1. Start p.o. diltiazem and metoprolol for rate control. 2. Try to wean off the drip. 3. Add an YOLANDA inhibitor. 4. Continue IV Lasix. 5. Replete his potassium. 6. Initiate Eliquis for anticoagulation in place of the Lovenox. 7. He will need to have his rate controlled and get out of congestive heart failure before he is stable for discharge. I told him to expect probably a couple of days at least. MD PEGGY Sosa/MIKI /2:04 PM /3:43 PM
[2017-02-27] MEDS: DILTIAZEM HCL 60 MG TAB PO SCH (16:45)
--- NOTE | 2017-02-27 17:48 | ECHRPT ---
Indication: CONCLUSIONS Mildly dilated left ventricle. Wall thickness is normal. The left ventricular systolic function is severely reduced with an estimated ejection fraction in th e range of 15-20%. There is diffuse global hypokinesis with distinct regional wall motion abnormalities. The right ventricular systoilc function is moderately decreased. The left atrial size is upper limits of normal. [id number] mitral valve regurgitation. Mild tricuspid regurgitation. BP: / HR: Rhythm: MEASUREMENTS (Male / Female) Normal Values Technical Quality:Good 2D ECHO LV Diastolic Diameter PLAX 5.5 cm 4.2 - 5.9 / 3.9 - 5.3 cm LV Systolic Diameter PLAX 4.9 cm IVS Diastolic Thickness 1.0 cm 0.6 - 1.0 / 0.6 - 0.9 cm LVPW Diastolic Thickness 0.7 cm 0.6 - 1.0 / 0.6 - 0.9 cm LV Relative Wall Thickness 0.3 RV Internal Dim ED PLAX 2.7 cm LA Systolic Diameter LX 4.3 cm 3.0 - 4.0 / 2.7 - 3.8 cm DOPPLER MR Peak Velocity 506.0 cm/s MR Peak Gradient 102.4 mmHg TR Peak Velocity 303.0 cm/s TR Peak Gradient 36.7 mmHg FINDINGS LEFT VENTRICLE Mildly dilated left ventricle. Wall thickness is normal. The left ventricular systolic function is severely reduced with an estimated ejection fraction in th e range of 15-20%. There is diffuse global hypokinesis with distinct regional wall motion abnormalities. RIGHT VENTRICLE The right ventricular systoilc function is moderately decreased. LEFT ATRIUM The left atrial size is upper limits of normal. RIGHT ATRIUM The right atrial size is normal. ATRIAL SEPTUM Normal atrial septal thickness without atrial level shunting by limited color doppler interrogation. AORTA The aortic root and proximal ascending aorta are normal in size on limited imaging. MITRAL VALVE [id number] mitral valve regurgitation. AORTIC VALVE Trileaflet aortic valve. No aortic valve stenosis or regurgitation. TRICUSPID VALVE Structurally normal tricuspid valve. No tricuspid valve stenosis. Mild tricuspid regurgitation. PULMONARY VALVE The pulmonary valve is not well visualized. VESSELS The inferior vena cava is normal in size. PERICARDIUM No pericardial effusion. Titus Ordonez MD, FACC (Electronically Signed) Final Date:27 February 2017 17:47
[2017-02-27] MEDS: LISINOPRIL 5 MG TAB PO SCH ×2 (21:00→21:03)
[2017-02-27] MEDS: METOPROLOL TARTRATE 25 MG TAB PO SCH (21:01)
[2017-02-27] MEDS: APIXABAN 5 MG TABLET PO SCH (21:04)
[2017-02-27] MEDS: FUROSEMIDE 20 MG/2 ML VIAL IV PUSH SCH (21:06)
[2017-02-28] VITALS (20 sets, daily range): BP systolic 84–131; BP diastolic 57–88; PULSE 82–106; RESP 14–18; TEMP 97.5–98; O2SAT 95–98
[2017-02-28] MEDS: DILTIAZEM HCL 60 MG TAB PO SCH ×2 (00:56→06:12)
[2017-02-28] MEDS ORDERED: ALPRAZolam 0.25 MG TAB PO ONE (01:30)
[2017-02-28 05:54] LABS: AUTOMATED NEUTROPHIL # 6.2 TH/MM3 (1.8-7.7); BASOPHIL % 0.5 % (0.0-2.0); EOSINOPHIL % 0.3 % (0.0-4.0); HEMATOCRIT 42.9 % (39.0-51.0); HEMOGLOBIN 14.7 GM/DL (13.0-17.0); LYMPH % 21.4 % (9.0-44.0); MEAN CELL VOLUME 101.1 FL (80.0-100.0); MEAN CORPUSCULAR HEMOGLOBIN 34.7 PG (27.0-34.0); MEAN CORPUSCULAR HGB CONC 34.3 % (32.0-36.0); MEAN PLATELET VOLUME 8.1 FL (7.0-11.0); MONO % 11.1 % (0.0-8.0); NEUT % 66.7 % (16.0-70.0); PLATELET COUNT 199 TH/MM3 (150-450); RED BLOOD COUNT 4.24 MIL/MM3 (4.50-5.90); RED CELL DISTRIBUTION WIDTH 13.2 % (11.6-17.2); WHITE BLOOD COUNT 9.3 TH/MM3 (4.0-11.0)
[2017-02-28 06:09] LABS: ALBUMIN 3.2 GM/DL (3.4-5.0); AST (GOT) 39 U/L (15-37); BICARBONATE 24.3 MEQ/L (21.0-32.0); BLOOD UREA NITROGEN 24 MG/DL (7-18); CALCIUM 8.2 MG/DL (8.5-10.1); CHLORIDE 106 MEQ/L (98-107); CREATININE 1.13 MG/DL (0.60-1.30); GLOMERULAR FILTRATION RATE 66 ML/MIN (>89); GLUCOSE,RANDOM 122 MG/DL (74-106); SODIUM (NA) 139 MEQ/L (136-145)
[2017-02-28 06:14] LABS: ALKALINE PHOSPHATASE 44 U/L (45-117); ALT (GPT) 85 U/L (12-78); TOTAL BILIRUBIN ADULT 0.8 MG/DL (0.2-1.0); TOTAL PROTEIN 6.1 GM/DL (6.4-8.2)
[2017-02-28] MEDS: INSULIN ASPART SUPPLEMENTAL SCALE SQ SCH ×2 (08:00→12:00)
[2017-02-28] MEDS ORDERED: POTASSIUM CHLORIDE 20 MEQ CONTROLLED RELEASE TAB PO SCH (09:00)
[2017-02-28] MEDS: DOCUSATE SODIUM 50 MG/SENNA 8.6 MG TAB PO SCH ×2 (10:18→20:55)
[2017-02-28] MEDS: APIXABAN 5 MG TABLET PO SCH ×2 (10:18→20:54)
[2017-02-28] MEDS: POTASSIUM CHLORIDE 20 MEQ CONTROLLED RELEASE TAB PO SCH ×4 (10:18→20:54)
[2017-02-28] MEDS: METOPROLOL TARTRATE 25 MG TAB PO SCH (10:19)
[2017-02-28] MEDS: PRAVASTATIN SOD 20 MG TAB PO SCH (10:19)
[2017-02-28] MEDS: LISINOPRIL 5 MG TAB PO SCH ×2 (10:19→20:55)
[2017-02-28] MEDS: FAMOTIDINE 20 MG TAB PO SCH ×2 (10:19→20:55)
[2017-02-28] MEDS: ASPIRIN 325 MG TAB PO SCH (10:19)
[2017-02-28] MEDS: FUROSEMIDE 20 MG/2 ML VIAL IV PUSH SCH ×2 (10:20→20:53)
--- NOTE | 2017-02-28 12:11 | HHI.PR ---
Subjective Remarks Follow-up non-ST elevation [place]/new onset systolic CHF/hyperlipidemia 02/28/17-patient seen and examined, reports improvement of shortness of breath and denies any chest pain. No acute event overnight. Girlfriend by the bedside. Objective Vitals Vital Signs Date Time Temp Pulse Resp B/P (MAP) Pulse Ox O2 Delivery O2 Flow Rate FiO2 02/28/17 08:00 98.0 88 18 112/60 (77) 97 02/28/17 06:48 92 115/77 02/28/17 05:55 88 02/28/17 04:32 90 18 89/57 (68) 96 02/28/17 03:00 86 02/28/17 02:00 94 02/28/17 01:00 100 02/28/17 00:52 97.5 101 18 108/86 (93) 96 02/28/17 00:00 103 02/27/17 23:00 110 02/27/17 22:00 106 02/27/17 21:21 96/57 (70) 02/27/17 21:00 100 02/27/17 20:00 96 Room Air 02/27/17 20:00 113 02/27/17 19:52 98.0 91 16 117/79 (92) 96 02/27/17 19:00 106 02/27/17 17:10 98.3 18 02/27/17 15:32 69 02/27/17 14:14 Nasal Cannula 2.00 I/O 02/27/17 02/27/17 02/27/17 02/28/17 02/28/17 02/28/17 07:00 15:00 23:00 07:00 15:00 23:00 Intake Total 530 ml 480 ml 540 ml Output Total 800 ml 800 ml Balance -270 ml 480 ml -260 ml Intake Oral 480 ml 480 ml 480 ml IV Total 50 ml 60 ml Output Urine Total 800 ml 800 ml # Bowel Movements 0 0 Result Diagram: 02/28/17 0502 02/28/17 050 Imaging Last Impressions Chest X-Ray 02/26/17 1340 Signed Impressions: Service Date/Time: Sunday, February 26, 2017 13:58 - CONCLUSION: Mild congestive failure. Mild cardiomegaly Casey Guardado MD FACR Objective Remarks GENERAL: NAD SKIN: Warm and dry. HEAD: Normocephalic. EYES: No scleral icterus. No injection or drainage. NECK: Supple, trachea midline. No JVD or lymphadenopathy. CARDIOVASCULAR: Irregular Regular rate and rhythm without murmurs, gallops, or rubs. RESPIRATORY: Breath sounds equal bilaterally. No accessory muscle use. GASTROINTESTINAL: Abdomen soft, non-tender, nondistended. MUSCULOSKELETAL: No cyanosis, or edema. BACK: Nontender without obvious deformity. No CVA tenderness. A/P Problem List: (1) Atrial fibrillation ICD Code: I48.91 - Unspecified atrial fibrillation (2) Troponin level elevated ICD Code: R74.8 - Abnormal levels of other serum enzymes (3) Dyspnea ICD Code: R06.00 - Dyspnea, unspecified (4) Shortness of breath ICD Code: R06.02 - Shortness of breath (5) Systolic CHF, acute ICD Code: I50.21 - Acute systolic (congestive) heart failure (6) Atrial fibrillation with rapid ventricular response ICD Code: I48.91 - Unspecified atrial fibrillation Status: Acute Assessment and Plan 61-year-old man with Atrial fibrillation RVR Currently rate controlled on Cardizem by mouth, Lopressor, Eliquis Management per cardiology Acute systolic CHF 2D echo with EF 15-20% Currently on Lasix IV 40mg BID, YOLANDA-I, Lopressor Strict I & O's, CHF education NSTEMI? Elevation of Troponin likely d/t A-Fib with RVR +/- CHF exacerbation Hyperlipidemia Currently on Statin DVT Roger Reyna MD Feb 28, 2017 12:11
--- NOTE | 2017-02-28 12:42 | PD.CARD.PN ---
Subjective Subjective Remarks Feels "good". Denies CP, dyspnea, dizziness, palpitations. Objective Medications Item Value Date Time Pravastatin Sodium 10 mg 02/28/17 0900 (Pravachol) DAILY/PO 02/28/17 1019 Metoprolol 25 mg 02/27/17 2100 Tartrate Q12HR/PO 02/28/17 1019 (Lopressor) Apixaban 5 mg 02/27/17 2100 (Eliquis) BID/PO 02/28/17 1018 Lisinopril 5 mg 02/27/17 2100 (Prinivil) Q12HR/PO 02/28/17 1019 Furosemide 40 mg 02/27/17 2100 (Lasix Inj) BID/IV PUSH 02/28/17 1020 Diltiazem HCl 60 mg 02/27/17 1800 (Cardizem) Q6HR/PO 02/28/17 0612 Potassium Chloride 20 meq 02/27/17 1600 (KCl) QID NEB/PO 02/28/17 1018 Aspirin 325 mg 02/26/17 1715 (Aspirin) DAILY/PO 02/28/17 1019 Current Medications Medications (Trade) Dose Ordered Sig/Krzysztof Route Start Time Stop Time Status Last Admin (D50w (Vial) Inj) 50 ml UNSCH PRN IV PUSH 02/26/17 17:15 (Glucagon Inj) 1 mg UNSCH PRN OTHER 02/26/17 17:15 (NovoLOG SUPPLEMENTAL SCALE) 1 ACHS SLIDING SCALE SQ 02/26/17 21:00 (Aspirin) 325 mg DAILY PO 02/26/17 17:15 02/28/17 10:19 (NS Flush) 2 ml UNSCH PRN IV FLUSH 02/26/17 17:15 (NS Flush) 2 ml BID IV FLUSH 02/26/17 21:00 02/27/17 21:01 (Tylenol) 650 mg Q4H PRN PO 02/26/17 17:15 (Zofran Inj) 4 mg Q6H PRN IVP 02/26/17 17:15 (Reglan Inj) 5 mg Q6H PRN IV PUSH 02/26/17 17:15 (Tylenol) 650 mg Q6H PRN PO 02/26/17 17:15 (Percocet 5-325 Mg) 1 tab Q6H PRN PO 02/26/17 17:15 (Percocet 10-325 Mg) 1 tab Q6H PRN PO 02/26/17 17:15 (Morphine Inj) 2 mg Q3H PRN IV PUSH 02/26/17 17:15 (Morphine Inj) 4 mg Q3H PRN IV PUSH 02/26/17 17:15 (Narcan Inj) 0.4 mg UNSCH PRN IV PUSH 02/26/17 17:15 (Laurie-Colace) 1 tab BID PO 02/26/17 21:00 02/28/17 10:18 (Milk Of Magnesia Liq) 30 ml Q12H PRN PO 02/26/17 17:15 (Senokot) 17.2 mg Q12H PRN PO 02/26/17 17:15 (Dulcolax Supp) 10 mg DAILY PRN RECTAL 02/26/17 17:15 (Lactulose Liq) 30 ml DAILY PRN PO 02/26/17 17:15 (Pepcid) 20 mg BID PO 02/26/17 21:00 02/28/17 10:19 (Lopressor) 25 mg Q12HR PO 02/27/17 21:00 02/28/17 10:19 (Cardizem) 60 mg Q6HR PO 02/27/17 18:00 02/28/17 06:12 (Eliquis) 5 mg BID PO 02/27/17 21:00 02/28/17 10:18 (KCl) 20 meq QID NEB PO 02/27/17 16:00 02/28/17 10:18 (Prinivil) 5 mg Q12HR PO 02/27/17 21:00 02/28/17 10:19 Diltiazem HCl 125 mg/Sodium Chloride 125 ml @ 5 mls/hr TITRATE PRN IV 02/27/17 14:15 02/28/17 06:48 (Lasix Inj) 40 mg BID IV PUSH 02/27/17 21:00 02/28/17 10:20 (Pravachol) 10 mg DAILY PO 02/28/17 09:00 02/28/17 10:19 Vital Signs / I&O Vital Signs Date Time Temp Pulse Resp B/P (MAP) Pulse Ox O2 Delivery O2 Flow Rate FiO2 02/28/17 12:32 95 02/28/17 08:00 98.0 88 18 112/60 (77) 97 02/28/17 06:48 92 115/77 02/28/17 05:55 88 02/28/17 04:32 90 18 89/57 (68) 96 02/28/17 03:00 86 02/28/17 02:00 94 02/28/17 01:00 100 02/28/17 00:52 97.5 101 18 108/86 (93) 96 02/28/17 00:00 103 02/27/17 23:00 110 02/27/17 22:00 106 02/27/17 21:21 96/57 (70) 02/27/17 21:00 100 02/27/17 20:00 96 Room Air 02/27/17 20:00 113 02/27/17 19:52 98.0 91 16 117/79 (92) 96 02/27/17 19:00 106 02/27/17 17:10 98.3 18 02/27/17 15:32 69 02/27/17 14:14 Nasal Cannula 2.00 I/O 02/27/17 02/27/17 02/27/17 02/28/17 02/28/17 02/28/17 07:00 15:00 23:00 07:00 15:00 23:00 Intake Total 530 ml 480 ml 540 ml Output Total 800 ml 800 ml Balance -270 ml 480 ml -260 ml Intake Oral 480 ml 480 ml 480 ml IV Total 50 ml 60 ml Output Urine Total 800 ml 800 ml # Bowel Movements 0 0 Physical Exam GENERAL: Well developed, well nourished. No acute distress. HEENT: Jugular venous pressure is normal. CHEST: Minimal bibasilar crackles. CARDIAC: Irregular rate and rhythm without S3, S4, or murmur. ABDOMEN: Soft, nontender, no hepatosplenomegaly. Bowel sounds present. EXTREMITIES: No clubbing, cyanosis. 1+ pretibial edema. Laboratory Laboratory Tests Test 02/28/17 05:02 White Blood Count 9.3 TH/MM3 Red Blood Count 4.24 MIL/MM3 Hemoglobin 14.7 GM/DL Hematocrit 42.9 % Mean Corpuscular Volume 101.1 FL Mean Corpuscular Hemoglobin 34.7 PG Mean Corpuscular Hemoglobin Concent 34.3 % Red Cell Distribution Width 13.2 % Platelet Count 199 TH/MM3 Mean Platelet Volume 8.1 FL Neutrophils (%) (Auto) 66.7 % Lymphocytes (%) (Auto) 21.4 % Monocytes (%) (Auto) 11.1 % Eosinophils (%) (Auto) 0.3 % Basophils (%) (Auto) 0.5 % Neutrophils # (Auto) 6.2 TH/MM3 Lymphocytes # (Auto) 2.0 TH/MM3 Monocytes # (Auto) 1.0 TH/MM3 Eosinophils # (Auto) 0.0 TH/MM3 Basophils # (Auto) 0.0 TH/MM3 CBC Comment DIFF FINAL Differential Comment Blood Urea Nitrogen 24 MG/DL Creatinine 1.13 MG/DL Random Glucose 122 MG/DL Total Protein 6.1 GM/DL Albumin 3.2 GM/DL Calcium Level 8.2 MG/DL Phosphorus Level 4.0 MG/DL Magnesium Level 2.0 MG/DL Alkaline Phosphatase 44 U/L Aspartate Amino Transf (AST/SGOT) 39 U/L Alanine Aminotransferase (ALT/SGPT) 85 U/L Total Bilirubin 0.8 MG/DL Sodium Level 139 MEQ/L Potassium Level 3.9 MEQ/L Chloride Level 106 MEQ/L Carbon Dioxide Level 24.3 MEQ/L Anion Gap 9 MEQ/L Estimat Glomerular Filtration Rate 66 ML/MIN Assessment and Plan Problem List: (1) Congestive heart failure ICD Codes: I50.9 - Heart failure, unspecified Status: Acute Plan: Continues to improve with effective diuresis. EF 20%. Suspect non- ischemic cardiomyopathy. REC repeat CXR stop diltiazem in favor of increasing metoprolol dosing continue YOLANDA-I, IV furosemide repeat echo in 3 months (2) Paroxysmal atrial fibrillation ICD Codes: I48.0 - Paroxysmal atrial fibrillation Status: Acute Plan: Remains in atrial fib, controlled HR's. Continue anticoagulation therapy. To stop diltiazem in favor of higher beta oscar dosing. Code Status full code Discussed Condition With patient and significant other Problem Qualifiers (1) Congestive heart failure: Qualified Codes: I50.21 - Acute systolic (congestive) heart failure Kiet Myers MD Feb 28, 2017 12:42
[2017-02-28] MEDS ORDERED: METOLAZONE 5 MG TAB PO ONE (12:45)
--- NOTE | 2017-02-28 16:17 | RADRPT ---
EXAM DATE/TIME: 02/28/2017 16:01 [place] COMPARISON: No previous studies available for comparison. INDICATIONS : Shortness of breath MEDICAL HISTORY : A-fib SURGICAL HISTORY : None. ENCOUNTER: Initial ACUITY: 1 day PAIN SCORE: 0/10 LOCATION: Bilateral chest FINDINGS: PA and lateral views of the chest. The lungs are clear. Mild cardiac silhouette enlargement. No evide nce of pleural effusion or pneumothorax. CONCLUSION: No acute cardiopulmonary disease identified. Martín Patel MD on February 28, 2017 at 16:15 Board Certified Radiologist. This report was verified electronically.
[2017-02-28] MEDS: METOPROLOL TARTRATE 50 MG TAB PO SCH (20:53)
[2017-02-28] MEDS: SODIUM CHLORIDE 0.9% FLUSH 10 ML FLUSH IV FLUSH SCH ×2 (20:55→21:00)
[2017-03-01] VITALS (9 sets, daily range): BP systolic 93–110; BP diastolic 68–93; PULSE 70–106; RESP 14–18; TEMP 97.8–98; O2SAT 94–96
[2017-03-01 06:10] LABS: AUTOMATED NEUTROPHIL # 5.4 TH/MM3 (1.8-7.7); BASOPHIL % 0.5 % (0.0-2.0); EOSINOPHIL % 0.5 % (0.0-4.0); HEMATOCRIT 43.8 % (39.0-51.0); LYMPH % 26.3 % (9.0-44.0); LYMPHOCYTE # 2.3 TH/MM3 (1.0-4.8); MEAN CELL VOLUME 100.9 FL (80.0-100.0); MEAN CORPUSCULAR HEMOGLOBIN 34.5 PG (27.0-34.0); MEAN CORPUSCULAR HGB CONC 34.2 % (32.0-36.0); MEAN PLATELET VOLUME 7.9 FL (7.0-11.0); MONO % 10.8 % (0.0-8.0); MONOCYTE # 0.9 TH/MM3 (0-0.9); NEUT % 61.9 % (16.0-70.0); PLATELET COUNT 174 TH/MM3 (150-450); RED BLOOD COUNT 4.34 MIL/MM3 (4.50-5.90); RED CELL DISTRIBUTION WIDTH 13.3 % (11.6-17.2); WHITE BLOOD COUNT 8.8 TH/MM3 (4.0-11.0)
[2017-03-01 06:24] LABS: BICARBONATE 22.5 MEQ/L (21.0-32.0); CALCIUM 8.5 MG/DL (8.5-10.1); CREATININE 1.07 MG/DL (0.60-1.30)
[2017-03-01] MEDS: METOPROLOL TARTRATE 50 MG TAB PO SCH (08:11)
[2017-03-01] MEDS: LISINOPRIL 5 MG TAB PO SCH (08:11)
--- NOTE | 2017-03-01 08:11 | PD.CARD.PN ---
Subjective Subjective Remarks Denies CP, dyspnea, dizziness, palpitations. Slept well. Objective Medications Item Value Date Time Aspirin 81 mg 03/01/17 0900 (Aspirin Chew) DAILY/PO Digoxin 0.25 mg 03/01/17 0900 (Lanoxin) DAILY/PO Digoxin 0.5 mg 03/01/17 0815 (Lanoxin Inj) ONCE ONCE/IV PUSH Metoprolol 50 mg 02/28/172099 Tartrate Q12HR/PO 02/28/172052 (Lopressor) Pravastatin Sodium 10 mg 02/28/17 0900 (Pravachol) DAILY/PO 02/28/17 1019 Apixaban 5 mg 02/27/172099 (Eliquis) BID/PO 02/28/172053 Lisinopril 5 mg 02/27/172099 (Prinivil) Q12HR/PO Furosemide 40 mg 02/27/172099 (Lasix Inj) BID/IV PUSH 02/28/172052 Potassium Chloride 20 meq 02/27/17 1600 (KCl) QID NEB/PO 02/28/172053 Current Medications Medications (Trade) Dose Ordered Sig/Krzysztof Route Start Time Stop Time Status Last Admin (NS Flush) 2 ml UNSCH PRN IV FLUSH 02/26/17 17:15 (NS Flush) 2 ml BID IV FLUSH 02/26/17 21:00 02/28/17 21:00 (Tylenol) 650 mg Q4H PRN PO 02/26/17 17:15 (Zofran Inj) 4 mg Q6H PRN IVP 02/26/17 17:15 (Reglan Inj) 5 mg Q6H PRN IV PUSH 02/26/17 17:15 (Tylenol) 650 mg Q6H PRN PO 02/26/17 17:15 (Percocet 5-325 Mg) 1 tab Q6H PRN PO 02/26/17 17:15 (Percocet 10-325 Mg) 1 tab Q6H PRN PO 02/26/17 17:15 (Morphine Inj) 2 mg Q3H PRN IV PUSH 02/26/17 17:15 (Morphine Inj) 4 mg Q3H PRN IV PUSH 02/26/17 17:15 (Narcan Inj) 0.4 mg UNSCH PRN IV PUSH 02/26/17 17:15 (Laurie-Colace) 1 tab BID PO 02/26/17 21:00 02/28/17 10:18 (Milk Of Magnesia Liq) 30 ml Q12H PRN PO 02/26/17 17:15 (Senokot) 17.2 mg Q12H PRN PO 02/26/17 17:15 (Dulcolax Supp) 10 mg DAILY PRN RECTAL 02/26/17 17:15 (Lactulose Liq) 30 ml DAILY PRN PO 02/26/17 17:15 (Pepcid) 20 mg BID PO 02/26/17 21:00 02/28/17 10:19 (Eliquis) 5 mg BID PO 02/27/17 21:00 02/28/17 20:54 (KCl) 20 meq QID NEB PO 02/27/17 16:00 02/28/17 20:54 (Prinivil) 5 mg Q12HR PO 02/27/17 21:00 02/28/17 10:19 Diltiazem HCl 125 mg/Sodium Chloride 125 ml @ 5 mls/hr TITRATE PRN IV 02/27/17 14:15 02/28/17 06:48 (Lasix Inj) 40 mg BID IV PUSH 02/27/17 21:00 02/28/17 20:53 (Pravachol) 10 mg DAILY PO 02/28/17 09:00 02/28/17 10:19 (Aspirin Chew) 81 mg DAILY PO 03/01/17 09:00 (Lopressor) 50 mg Q12HR PO 02/28/17 21:00 02/28/17 20:53 (Lanoxin Inj) 0.5 mg ONCE ONCE IV PUSH 03/01/17 08:15 03/01/17 08:16 UNV (Lanoxin) 0.25 mg DAILY PO 03/01/17 09:00 UNV Vital Signs / I&O Vital Signs Date Time Temp Pulse Resp B/P (MAP) Pulse Ox O2 Delivery O2 Flow Rate FiO2 03/01/17 05:00 106 03/01/17 04:00 87 03/01/17 04:00 100 14 93/73 (80) 94 03/01/17 03:00 94 03/01/17 02:00 102 03/01/17 01:00 90 03/01/17 00:00 98.0 95 16 97/68 (78) 96 03/01/17 00:00 100 02/28/17 23:00 92 02/28/17 22:00 98 02/28/17 21:00 106 02/28/17 20:00 97 Room Air 02/28/17 20:00 91 14 84/59 (67) 98 02/28/17 20:00 93 02/28/17 19:00 104 02/28/17 18:00 92 02/28/17 17:20 97 21 02/28/17 17:00 90 02/28/17 17:00 97.7 83 16 106/75 (85) 98 02/28/17 15:00 90 02/28/17 13:00 86 02/28/17 13:00 97.8 89 18 131/88 (102) 97 02/28/17 12:32 95 02/28/17 11:00 82 I/O 02/28/17 02/28/17 02/28/17 03/01/17 03/01/17 03/01/17 07:00 15:00 23:00 07:00 15:00 23:00 Intake Total 540 ml 480 ml Output Total 800 ml 700 ml 1900 ml Balance -260 ml -700 ml -1420 ml Intake Oral 480 ml 480 ml IV Total 60 ml 0 ml Output Urine Total 800 ml 700 ml 1900 ml # Bowel Movements 0 0 Physical Exam GENERAL: Well developed, well nourished. No acute distress. HEENT: Jugular venous pressure is normal. CHEST: Lungs clear. CARDIAC: Irregular rate and rhythm without S3, S4, or murmur. ABDOMEN: Soft, nontender, no hepatosplenomegaly. Bowel sounds present. EXTREMITIES: No clubbing, cyanosis. Trace pretibial edema. Laboratory Laboratory Tests Test 03/01/17 04:57 White Blood Count 8.8 TH/MM3 Red Blood Count 4.34 MIL/MM3 Hemoglobin 15.0 GM/DL Hematocrit 43.8 % Mean Corpuscular Volume 100.9 FL Mean Corpuscular Hemoglobin 34.5 PG Mean Corpuscular Hemoglobin Concent 34.2 % Red Cell Distribution Width 13.3 % Platelet Count 174 TH/MM3 Mean Platelet Volume 7.9 FL Neutrophils (%) (Auto) 61.9 % Lymphocytes (%) (Auto) 26.3 % Monocytes (%) (Auto) 10.8 % Eosinophils (%) (Auto) 0.5 % Basophils (%) (Auto) 0.5 % Neutrophils # (Auto) 5.4 TH/MM3 Lymphocytes # (Auto) 2.3 TH/MM3 Monocytes # (Auto) 0.9 TH/MM3 Eosinophils # (Auto) 0.0 TH/MM3 Basophils # (Auto) 0.0 TH/MM3 CBC Comment DIFF FINAL Differential Comment Blood Urea Nitrogen 24 MG/DL Creatinine 1.07 MG/DL Random Glucose 104 MG/DL Calcium Level 8.5 MG/DL Sodium Level 137 MEQ/L Potassium Level 3.9 MEQ/L Chloride Level 105 MEQ/L Carbon Dioxide Level 22.5 MEQ/L Anion Gap 10 MEQ/L Estimat Glomerular Filtration Rate 70 ML/MIN Imaging Last 24 hours Impressions Chest X-Ray 02/28/17 1500 Signed Impressions: Service Date/Time: Tuesday, February 28, 2017 16:01 - CONCLUSION: No acute cardiopulmonary disease identified. Martín Patel MD Assessment and Plan Problem List: (1) Congestive heart failure ICD Codes: I50.9 - Heart failure, unspecified Status: Acute Plan: Doing well. Good diuresis since admission. Repeat CXR clear. EF 20%. Suspect non-ischemic cardiomyopathy. REC change to oral furosemide 40 mg daily stressed to patient importance of taking medications and daily weights OK to discharge today from my standpoint; f/u with Dr. Fabian Damon repeat echo in 3 months (2) Paroxysmal atrial fibrillation ICD Codes: I48.0 - Paroxysmal atrial fibrillation Status: Acute Plan: Remains in atrial fib, mostly controlled HR's, mildly increased this morning after getting up and around. Continue anticoagulation therapy. Add digoxin. Instructed patient to purchase BP machine and check HR's at home, let Dr. Damon know if persistently > 100 at rest. Code Status full code Discussed Condition With patient Problem Qualifiers (1) Congestive heart failure: Qualified Codes: I50.21 - Acute systolic (congestive) heart failure Kiet Myers MD Mar 01, 2017 08:10
[2017-03-01] MEDS: FAMOTIDINE 20 MG TAB PO SCH (08:12)
[2017-03-01] MEDS: APIXABAN 5 MG TABLET PO SCH (08:12)
[2017-03-01] MEDS: PRAVASTATIN SOD 20 MG TAB PO SCH (08:12)
[2017-03-01] MEDS: SODIUM CHLORIDE 0.9% FLUSH 10 ML FLUSH IV FLUSH SCH (08:13)
[2017-03-01] MEDS: POTASSIUM CHLORIDE 20 MEQ CONTROLLED RELEASE TAB PO SCH (08:13)
[2017-03-01] MEDS ORDERED: DIGOXIN 0.5 MG/2 ML VIAL IV PUSH ONE (08:15)
[2017-03-01] MEDS ORDERED: ASPIRIN 81 MG CHEW TAB PO SCH (09:00)
[2017-03-01] MEDS ORDERED: FUROSEMIDE 40 MG TAB PO SCH (09:00)
[2017-03-01] MEDS ORDERED: DIGOXIN 0.25 MG TAB PO SCH (09:00)
--- NOTE | 2017-03-01 10:07 | HHI.PR ---
Subjective Remarks Follow-up non-ST elevation OR/new onset systolic CHF/hyperlipidemia 02/28/17-patient seen and examined, reports improvement of shortness of breath and denies any chest pain. No acute event overnight. Girlfriend by the bedside. 03/01/17-patient seen and examined, denies any chest pain, shortness of breath. No acute event overnight, and states he is ready for discharge home today Objective Vitals Vital Signs Date Time Temp Pulse Resp B/P (MAP) Pulse Ox O2 Delivery O2 Flow Rate FiO2 03/01/17 09:00 70 03/01/17 08:00 72 03/01/17 08:00 97.8 73 18 110/93 (99) 95 03/01/17 08:00 96 Room Air 03/01/17 07:00 100 03/01/17 05:00 106 03/01/17 04:00 87 03/01/17 04:00 100 14 93/73 (80) 94 03/01/17 03:00 94 03/01/17 02:00 102 03/01/17 01:00 90 03/01/17 00:00 98.0 95 16 97/68 (78) 96 03/01/17 00:00 100 02/28/17 23:00 92 02/28/17 22:00 98 02/28/17 21:00 106 02/28/17 20:00 97 Room Air 02/28/17 20:00 91 14 84/59 (67) 98 02/28/17 20:00 93 02/28/17 19:00 104 02/28/17 18:00 92 02/28/17 17:20 97 21 02/28/17 17:00 90 02/28/17 17:00 97.7 83 16 106/75 (85) 98 02/28/17 15:00 90 02/28/17 13:00 86 02/28/17 13:00 97.8 89 18 131/88 (102) 97 02/28/17 12:32 95 02/28/17 11:00 82 I/O 02/28/17 02/28/17 02/28/17 03/01/17 03/01/17 03/01/17 07:00 15:00 23:00 07:00 15:00 23:00 Intake Total 540 ml 480 ml Output Total 800 ml 700 ml 1900 ml Balance -260 ml -700 ml -1420 ml Intake Oral 480 ml 480 ml IV Total 60 ml 0 ml Output Urine Total 800 ml 700 ml 1900 ml # Bowel Movements 0 0 Result Diagram: 03/01/17 0457 03/01/17 0457 Imaging Last Impressions Chest X-Ray 02/28/17 1500 Signed Impressions: Service Date/Time: Tuesday, February 28, 2017 16:01 - CONCLUSION: No acute cardiopulmonary disease identified. Martín Patel MD Objective Remarks GENERAL: NAD SKIN: Warm and dry. HEAD: Normocephalic. EYES: No scleral icterus. No injection or drainage. NECK: Supple, trachea midline. No JVD or lymphadenopathy. CARDIOVASCULAR: Irregular Regular rate and rhythm without murmurs, gallops, or rubs. RESPIRATORY: Breath sounds equal bilaterally. No accessory muscle use. GASTROINTESTINAL: Abdomen soft, non-tender, nondistended. MUSCULOSKELETAL: No cyanosis, or edema. BACK: Nontender without obvious deformity. No CVA tenderness. Procedures None A/P Problem List: (1) Atrial fibrillation ICD Code: I48.91 - Unspecified atrial fibrillation (2) Troponin level elevated ICD Code: R74.8 - Abnormal levels of other serum enzymes (3) Dyspnea ICD Code: R06.00 - Dyspnea, unspecified (4) Shortness of breath ICD Code: R06.02 - Shortness of breath (5) Systolic CHF, acute ICD Code: I50.21 - Acute systolic (congestive) heart failure (6) Atrial fibrillation with rapid ventricular response ICD Code: I48.91 - Unspecified atrial fibrillation Status: Acute Assessment and Plan 61-year-old man with Atrial fibrillation RVR Currently rate controlled on Cardizem by mouth, digoxin, Lopressor, Eliquis Management per cardiology Acute systolic CHF 2D echo with EF 15-20% Now on Lasix 40mg daily, YOLANDA-I, Lopressor Strict I & O's, CHF education NSTEMI? Nonischemic cardiomyopathy suspected Elevation of Troponin likely d/t A-Fib with RVR +/- CHF exacerbation Hyperlipidemia Currently on Statin DVT Roger Reyna MD Mar 01, 2017 10:07
[2017-03-01] MEDS ORDERED: POTA20TA5 PO (10:11)
[2017-03-01] MEDS ORDERED: LISI-519 PO (10:11)
[2017-03-01] MEDS ORDERED: FURO40TA PO (10:11)
[2017-03-01] MEDS ORDERED: APIX5TAB PO (10:11)
[2017-03-01] MEDS ORDERED: PRAV20TA PO (10:11)
[2017-03-01] MEDS ORDERED: DIGO0.25 PO (10:11)
[2017-03-01] MEDS ORDERED: METO-309 PO (10:11)
--- NOTE | 2017-03-01 10:15 | HHI.DS ---
Discharge Summary Admission Date Feb 26, 2017 at 17:47 Discharge Date: Mar 01, 2017 Admitting Diagnosis (1) Atrial fibrillation ICD Code: I48.91 - Unspecified atrial fibrillation (2) Troponin level elevated ICD Code: R74.8 - Abnormal levels of other serum enzymes (3) Dyspnea ICD Code: R06.00 - Dyspnea, unspecified (4) Shortness of breath ICD Code: R06.02 - Shortness of breath (5) Systolic CHF, acute ICD Code: I50.21 - Acute systolic (congestive) heart failure (6) Atrial fibrillation with rapid ventricular response ICD Code: I48.91 - Unspecified atrial fibrillation Status: Acute Procedures None Brief History - From Admission Patient is a 61-year-old male with no significant past medical history presented to [facility] today with shortness of breath with ongoing exertion for the past 10 days. Patient also reports shortness of breath when lying flat. Patient also remarks that he's had swelling of his legs over the last 2 or so days. He states this is new. A denies any chest pain or chest pressure. Denies any palpitations. Smokes 5 cigars per year denies any alcohol abuse denies any thyroid issues Was found to be in A. fib with RVR and positive troponins and therefore will be admitted on a Cardizem drip to the cardiac floor CBC/BMP: 03/01/17 0457 03/01/17 0457 Significant Findings Laboratory Tests Test 02/26/17 13:52 02/26/17 14:08 02/26/17 16:29 02/26/17 22:48 Red Blood Count 4.40 MIL/MM3 (4.50-5.90) Mean Corpuscular Volume 100.2 FL (80.0-100.0) Mean Corpuscular Hemoglobin 35.3 PG (27.0-34.0) Monocytes (%) (Auto) 10.4 % (0.0-8.0) Prothrombin Time 13.1 SEC (9.8-11.6) Activated Partial Thromboplast Time 22.2 SEC (24.3-30.1) Blood Urea Nitrogen 23 MG/DL (7-18) Random Glucose 119 MG/DL (74-106) Calcium Level 8.4 MG/DL (8.5-10.1) Estimat Glomerular Filtration Rate 64 ML/MIN (>89) Troponin I 0.17 NG/ML (0.02-0.05) 0.17 NG/ML (0.02-0.05) 0.15 NG/ML (0.02-0.05) B-Type Natriuretic Peptide 1556 PG/ML (0-100) Test 02/27/17 04:46 02/28/17 05:02 03/01/17 04:57 Red Blood Count 4.00 MIL/MM3 (4.50-5.90) 4.24 MIL/MM3 (4.50-5.90) 4.34 MIL/MM3 (4.50-5.90) Mean Corpuscular Volume 100.2 FL (80.0-100.0) 101.1 FL (80.0-100.0) 100.9 FL (80.0-100.0) Mean Corpuscular Hemoglobin 34.7 PG (27.0-34.0) 34.7 PG (27.0-34.0) 34.5 PG (27.0-34.0) Monocytes (%) (Auto) 10.2 % (0.0-8.0) 11.1 % (0.0-8.0) 10.8 % (0.0-8.0) Blood Urea Nitrogen 22 MG/DL (7-18) 24 MG/DL (7-18) 24 MG/DL (7-18) Random Glucose 110 MG/DL (74-106) 122 MG/DL (74-106) Total Protein 5.5 GM/DL (6.4-8.2) 6.1 GM/DL (6.4-8.2) Albumin 3.1 GM/DL (3.4-5.0) 3.2 GM/DL (3.4-5.0) Calcium Level 7.9 MG/DL (8.5-10.1) 8.2 MG/DL (8.5-10.1) Alkaline Phosphatase 41 U/L (45-117) 44 U/L (45-117) Aspartate Amino Transf (AST/SGOT) 41 U/L (15-37) 39 U/L (15-37) Alanine Aminotransferase (ALT/SGPT) 80 U/L (12-78) 85 U/L (12-78) Potassium Level 3.4 MEQ/L (3.5-5.1) Estimat Glomerular Filtration Rate 77 ML/MIN (>89) 66 ML/MIN (>89) 70 ML/MIN (>89) Troponin I 0.16 NG/ML (0.02-0.05) HDL Cholesterol 33.5 MG/DL (40.0-60.0) Monocytes # (Auto) 1.0 TH/MM3 (0-0.9) Imaging Last Impressions Chest X-Ray 02/28/17 1500 Signed Impressions: Service Date/Time: Tuesday, February 28, 2017 16:01 - CONCLUSION: No acute cardiopulmonary disease identified. Martín Patel MD PE at Discharge GENERAL: NAD SKIN: Warm and dry. HEAD: Normocephalic. EYES: No scleral icterus. No injection or drainage. NECK: Supple, trachea midline. No JVD or lymphadenopathy. CARDIOVASCULAR: Irregular Regular rate and rhythm without murmurs, gallops, or rubs. RESPIRATORY: Breath sounds equal bilaterally. No accessory muscle use. GASTROINTESTINAL: Abdomen soft, non-tender, nondistended. MUSCULOSKELETAL: No cyanosis, or edema. BACK: Nontender without obvious deformity. No CVA tenderness. Hospital Course Patient admitted secondary to and diagnosed with atrial fibrillation with RVR for which she was started on Cardizem drip and subsequently switched to by mouth Cardizem. Cardiology was consulted and a 2-D all to was obtained. Patient medication was adjusted accordingly and rate was controlled with an addition of Cardizem, Lopressor and digoxin as well as oral anticoagulation which was initiated. Patient was also treated for acute new onset of CHF with initially IV Lasix 40 mg twice a day which was subsequently switched to 40 daily by mouth prior to discharge with improvement of respiratory symptoms. He was also started on a low-dose statin. DVT and GI prophylaxis were provided. Prior to discharge, patient's condition improved and vitals remained stable. Pt Condition on Discharge: Good Discharge Disposition: Discharge Home Discharge Time: <= 30 minutes Discharge Instructions DIET: Follow Instructions for: Heart Healthy Diet Activities you can perform: Regular-No Restrictions Follow up Referrals: Cardiology PCP Follow-up - 1 Week New Medications: Apixaban (Eliquis) 5 Mg Tab 5 MG PO BID for Prevent Blood Clot, #60 TAB 3 Refills Digoxin (Digoxin) 0.25 Mg Tab 0.25 MG PO DAILY for Regulate Heart Beat, #30 TAB 3 Refills Furosemide (Furosemide) 40 Mg Tab 40 MG PO DAILY for Prevent Heart Failure, #30 TAB 3 Refills Lisinopril (Lisinopril) 5 Mg Tab 5 MG PO Q12HR for Blood Pressure Management, #30 TAB 3 Refills Metoprolol Tartrate (Lopressor) 50 Mg Tab 50 MG PO Q12HR for Blood Pressure Management, #60 TAB 3 Refills Potassium Chloride Microencaps (Potassium Chloride Microencaps) 20 Meq Tab 20 MEQ PO DAILY for Electrolyte Replacement, #30 TAB 3 Refills Pravastatin (Pravachol) 20 Mg Tab 10 MG PO DAILY for Cholesterol Management, #30 TAB 3 Refills Continued Medications: Aspirin (Aspirin Low Dose) 81 Mg Chew 81 MG CHEW DAILY, TAB 0 Refills Roger Haynes MD Mar 01, 2017 10:15
== END 2017-03-01 12:21 | disposition home or self-care (01) | DRG 308 ==
LOC: NEPE 13:04 → NEDA 17:47 → HCIS 20:35
PROVIDERS: ADMIT Hospitalist; ATTEND Hospitalist
DX: I48.0 Paroxysmal atrial fibrillation (principal); I50.21 Acute systolic (congestive) heart failure; F17.290 Nicotine dependence, other tobacco product, uncomplicated; E78.5 Hyperlipidemia, unspecified; E87.6 Hypokalemia; I42.9 Cardiomyopathy, unspecified; Z79.82 Long term (current) use of aspirin
CPT/HCPCS: 71010; 71020; 80048; 80053; 80061; 82550; 82948; 83036; 83735; 83880; 84100; 84439; 84443; 84484; 85025; 85610; 85730; 93005; 93306; 96365; 96366; 96375; J1650; J1940